=== PATIENT | female | born 2000 | race African-American/Black ===

== ENCOUNTER 2023-11-11 16:08 | Emergency (ER) | payer OTHER ==
[~2023-11-11] VITALS: Ht 167.6 cm; Wt 80.0 kg
[2023-11-11 16:32] VITALS: BP 124/74; PULSE 102; RESP 17; TEMP 99.1; O2SAT 100
== END 2023-11-11 18:55 | disposition left against medical advice (07) ==
LOC: ER 16:08
DX: Z53.21 Procedure and treatment not carried out due to patient leaving prior to being seen by health care provider (principal)
CPT/HCPCS: 99281